=== PATIENT | male | born 1940 | race Caucasian/White ===

== ENCOUNTER 2021-08-13 10:36 | Inpatient (IN) | payer MEDICARE, SELFPAY ==
[2021-08-13] VITALS (7 sets, daily range): BP systolic 103–142; BP diastolic 64–82; PULSE 87–126; RESP 18–24; TEMP 36.6–37.7; O2SAT 93–100; BMI 28.5; BMI 28.0
--- NOTE | 2021-08-13 11:17 | EKG12_ITS ---
Test Reason : WEAKNESS Blood Pressure : / mmHG Vent. Rate : 102 BPM Atrial Rate : 104 BPM P-R Int : 000 ms QRS Dur : 152 ms QT Int : 412 ms P-R-T Axes : 000 -32 033 degrees QTc Int : 536 ms Atrial fibrillation Left axis deviation Right bundle branch block Abnormal ECG Confirmed by RHYS MAYES, SHARA ([id number]), research editor ALICE BRAVO ([id number]) on 08/16/2021 11:12:20 AM Referred By: BB Confirmed By:SHARA JOINER MD
--- NOTE | 2021-08-13 11:19 | EDS_ITS ---
HPI History of Present Illness Chief Complaint: Weakness Informant: patient and family Narrative Narrative: Patient presenting with weakness multiple falls without injury, the last of which was this morning. He states he lives alone, he was walking in his kitchen and his legs would suddenly give out on him and be extremely weak, and this is happened multiple times before. He was admitted to [facility] in [place] twice in the last month for this, and he spent 4 days or so in short-term rehab as well. He states his legs been swollen for a couple months, but that is relatively new for him. Denies any shortness of breath, cough, headache, chest discomfort, GI symptoms, or injury. He states he has not been experiencing back pain except for when I was laying on the floor for an hour today. Family member states that when she got to him, initially he was having trouble moving his legs but he was able, then he got better and she was able to help get him up with the help of another man they had to call over to the house. He and family are concerned about his safety at home especially because he is on Eliquis, he does not know why he is on that but it seems he has a history of atrial fibrillation. He does not have any records at this hospital, so we are submitting for records from the one in [place]. [facility] Medical History Anemia Atrial fibrillation Congestive heart failure (CHF) Memory deficit Weakness Home Medications amlodipine 10 mg PO DAILY 08/13/21 [History Last Taken Unknown] apixaban [Eliquis] 5 mg PO BID 08/13/21 [History Last Taken Unknown] aspirin [Baby Aspirin] 81 mg PO DAILY 08/13/21 [History Last Taken Unknown] atorvastatin 40 mg PO DAILY 08/13/21 [History Last Taken Unknown] furosemide 20 mg PO DAILY 08/13/21 [History Last Taken Unknown] lisinopril 20 mg PO BID 08/13/21 [History Last Taken Unknown] metoprolol succinate 50 mg PO DAILY 08/13/21 [History Last Taken Unknown] Allergy/AdvReac Type Severity Reaction Status Date / Time No Known Allergies Allergy Verified 08/13/21 10:39 Surgical History History of ankle surgery Social History Smoking Status: Current some day smoker tobacco type: cigarettes ROS ROS ED Constitutional Constitutional ED: Reports malaise; Denies chills or fever(s) Eyes Eyes: Denies change in vision or diplopia ENT ENT ED: Denies rhinorrhea or sore throat Cardiovascular Cardiovascular: Reports pedal edema; Denies chest pain or palpitations Respiratory/Chest Respiratory/Chest: Denies cough or dyspnea Gastrointestinal Gastrointestinal: Denies abdominal pain, diarrhea, nausea or vomiting Genitourinary Genitourinary ED: Denies dysuria or hematuria Musculoskeletal Musculoskeletal: Denies back pain or neck pain Integumentary Denies abscess or rash Neurologic Neurologic: Denies headache(s), paresthesias or weakness Psychiatric Psychiatric: Denies anxiety or suicidal thoughts EXAM Physical Exam Const Vital Signs: 08/13/21 10:36 08/13/21 11:06 Temperature 97.9 F Temperature Source Temporal Pulse Rate 126 H Respiratory Rate 18 Respiratory Effort Normal Non-Labored Blood Pressure 103/82 H Blood Pressure Mean 89 Pulse Ox 100 Oxygen Delivery Method Room Air Positive well nourished and well developed General Appearance ED: well developed and NAD HEENT Reports moist mucous membranes normocephalic and atraumatic Eyes PERRL and EOMs intact bilaterally Neck full ROM and supple Resp normal respiratory effort and clear to auscultation bilaterally Cardio regular rate and regular rhythm Cardio Narrative: 2/6 systolic murmur LLSB Rate: Negative for tachycardic GI non-tender and non-distended Auscultation: normoactive bowel sounds Palpation: soft Back/Spine no CVA tenderness General Back: other FROM Extremity normal to inspection General Extremety ED: Yes edema; Negative for pulses abnormal or tenderness General Extremity: edema bilateral lower extremity Details: severe (To just above the knees, symmetric bilaterally, no signs of infection.); Negative for pulses abnormal Neuro oriented x3, CN's II-XII intact bilaterally and no sensory deficits noted Sensorium / Orientation: awake and alert Motor Exam: strength 5/5 throughout Skin no rashes or lesions noted and no wounds MDM MDM MDM Narrative Medical decision making narrative: Lumbosacral x-ray series 3 views interpreted by myself and radiology negative for anything acute. Heavy aortic calcifications noted. Degenerative changes noted. Chest x-ray 2 views of my interpretation also interpreted by radiology negative for anything acute. Patient's work-up shows significant hypokalemia 2.9, likely related to his Lasix which he does need because of his significant edema. He clearly is not safe to be at home at this time, plan will be for admission further treatment evaluation and disposition. His BNP is elevated, he apparently has a history of CHF but we do not have an echocardiogram on record and have not received any records from [place] yet, however he does not appear to be clinically or radiographically in any type of decompensated left-sided congestive heart failure at this time. Lab Data Attestation: I reviewed the patient's lab results. Labs: Laboratory Results - last 24 hr 08/13/21 08/13/21 08/13/21 11:20 11:20 11:20 WBC 6.9 RBC 3.35 L Hgb 9.2 L Hct 28.3 L MCV 84.5 MCH 27.5 MCHC 32.5 RDW Std Deviation 52.8 H RDW Coeff of Kierra 17.3 H Plt Count 253 MPV 10.2 Immature Gran % (Auto) 1.200 H Neut % (Auto) 81.3 H Lymph % (Auto) 3.8 L Daniels % (Auto) 13.6 H Eos % (Auto) 0.0 Baso % (Auto) 0.1 Absolute Neuts (auto) 5.6 Absolute Lymphs (auto) 0.26 L Nucleated RBC % 0 Plt Morphology Comment CLUMPED Sodium 133 L Potassium 2.9 L Chloride 94 L Carbon Dioxide 34.0 H Anion Gap 5 BUN 12 Creatinine 0.90 Estim Creat Clear Calc 83.05 Est GFR (MDRD) Af Amer 105 Est GFR (MDRD) Non-Af 87 BUN/Creatinine Ratio 13.3 Glucose 103 Calcium 8.3 L Troponin I High Sens 30 B-Natriuretic Peptide 665.7 H Radiography Diagnostic Testing: Clinical Impression(s) from Imaging Studies Chest X-Ray 08/13/21 11:45 IMPRESSION: No acute abnormalities. Electronically Signed: Shade Jefferson MD at 12:08 EST , Lumbar Spine X-Ray 08/13/21 11:45 IMPRESSION: Degenerative changes of the spine, as detailed above. Electronically Signed: Shade Jefferson MD at 12:08 EST , EKG Initial EKG: Attestation: I personally reviewed and interpreted this EKG as follows: Interpretation: No Acute Injury Pattern, Atrial Fibrillation and LBBB Comments: Rate 102 Prior: No Prior Discharge Plan Triage Chief Complaint: Weakness ED Provider: Gus Ramsay Dx/Rx/DC Orders Clinical Impression: Hypokalemia due to excessive renal loss of potassium, Muscle weakness of lower extremity, Edema, peripheral, Recurrent falls Prescriptions: No Action atorvastatin 40 mg tablet 40 mg PO DAILY RF: 0 metoprolol succinate 50 mg tablet extended release 24 hr 50 mg PO DAILY RF: 0 lisinopril 20 mg tablet 20 mg PO BID RF: 0 amlodipine 10 mg tablet 10 mg PO DAILY RF: 0 aspirin [Baby Aspirin] 81 mg Tablet,Chewable 81 mg PO DAILY RF: 0 furosemide 20 mg tablet 20 mg PO DAILY RF: 0 Eliquis 5 mg tablet 5 mg PO BID RF: 0 Primary Care Provider: Care Physician,No Primary Referrals: Care Physician,No Primary [Primary Care Provider] - Disposition Disposition: Acute Care [facility]
[2021-08-13 11:36] LABS: Absolute Lymphocyte Count 0.26 X10^3/uL (0.83-4.51); Absolute Neutrophil Count 5.6 X10^3/uL (2.0-7.7); Basophil# 0.01 X10^3/uL; Basophil% 0.1 % (0-1); Hematocrit 28.3 % (40-54); Hemoglobin 9.2 g/dL (13.0-16.5); Lymphocyte # 0.26 X10^3/ul (0.83-4.51); Lymphocyte % 3.8 % (19-41); Mean Corp Hgb Conc 32.5 g/dL (32-36); Mean Corpuscular Hgb 27.5 pg (27.0-32.0); Mean Corpuscular Volume 84.5 fL (80-94); Mean Platelet Vol. 10.2 fl (6.2-12.0); Monocyte# 0.93 X10^3/uL; Monocyte% 13.6 % (0-10); NRBC Flagged by Analyzer 0 % (0-5); Neutrophil # 5.57 X10^3/uL (2.7-7.7); Neutrophil % 81.3 % (47-70); POSITIVE DIFFERENTIAL YES; Platelet Count 253 K/mm3 (150-450); RBC Distribution Width CV 17.3 % (11.6-14.6); RBC Distribution Width SD 52.8 fl (35.1-43.9); Red Blood Count 3.35 M/mm3 (4.6-6.2); White Blood Count 6.9 K/mm3 (4.4-11.0)
--- NOTE | 2021-08-13 11:45 | RAD_ITS ---
STUDY: X-RAY CHEST REASON FOR EXAM: Male, 80 years old. Weakness. TECHNIQUE: AP and lateral views of the chest. COMPARISON: None. FINDINGS: EKG electrodes are seen. The lungs are clear and expanded. There is no demonstrated pleural abnormality. Sternal cerclage wires and vascular clips are present from a prior sternotomy and coronary artery bypass graft procedure (CABG). Normal mediastinum and shankar. Normal visualized pulmonary arteries. There is atherosclerotic tortuosity of the aortic arch and descending thoracic aorta. There are diffuse degenerative changes of the visualized thoracic spine. Normal visualized ribs, clavicles, and shoulders. There is no demonstrated abnormality of the visualized soft tissue structures of the upper abdomen. RAD/Chest PA and Lateral IMPRESSION: No acute abnormalities. Electronically Signed: Shade Jefferson MD at 12:08 [facility] ,
--- NOTE | 2021-08-13 11:45 | RAD_ITS ---
STUDY: X-RAY - LUMBAR SPINE REASON FOR EXAM: Male, 80 years old. Pain, leg weakness TECHNIQUE: 3 view(s) of the lumbar spine were obtained. COMPARISON: None FINDINGS: Normal lumbar lordosis. There is no substantial scoliosis. There is a normal alignment of the vertebrae. There is multilevel endplate spondylosis of the lumbar vertebrae. There is multi-level degenerative disc disease with multi-level disc space narrowing. Facet joint osteoarthritis. There is atherosclerotic calcification of the abdominal aorta without a demonstrated aneurysm. RAD/Lumbar Spine 2 or 3 Views IMPRESSION: Degenerative changes of the spine, as detailed above. Electronically Signed: Shade Jefferson MD at 12:08 EST ,
[2021-08-13 11:46] LABS: Differential Indicated SCAN CRITERIA MET
[2021-08-13 11:54] LABS: BNP,B-Type NATRIURETIC PEPTIDE 665.7 pg/mL (0-100)
[2021-08-13 11:55] LABS: Anion Gap 5 (5-15); BUN 12 mg/dL (7-18); BUN/Creat Ratio 13.3 RATIO (10-20); Calcium,Total 8.3 mg/dL (8.5-10.1); Chloride 94 mmol/L (98-107); EST Glomerular Filtration Rate 87 mL/min (>60); Est Glom Filt Rate - Afr Amer 105 mL/min (>60); Estimated Creatinine Clearance 83.05 ml/min; Glucose 103 mg/dL (74-106); Potassium 2.9 mmol/L (3.5-5.1); Sodium Level 133 mmol/L (136-145); Troponin-I HS 30 pg/mL (3.0-78.0)
[2021-08-13 12:00] LABS: Platelet Morphology CLUMPED
[2021-08-13 12:28] LABS: Lactic Acid 1.4 mmol/L (0.4-1.9)
[2021-08-13] MEDS: Potassium Chloride 10mEq/100mL 10 MEQ/100 ML IV.SOLN. 100 MEQ IV BOLUS ×3 (12:46→22:58)
--- NOTE | 2021-08-13 12:46 | HP.PCM.HOS_ITS ---
HPI - General General Date of Admission: 08/13/21 Date of Service: 08/13/21 Chief Complaint: Frequent falls HPI Narrative PHOENIX CHAVEZ, is a 80 M with past medical history is again for paroxysmal A. fib on systemic anticoagulation with Eliquis, essential hypertension who presented with frequent falls. Patient has had 4 falls since the end of June. Patient had been seen at [facility] for similar complaints. Per patient he denies any lightheadedness prior to the fall however his legs just gave away. Was seen in the ED only got diagnostic finding was hypokalemia with potassium of 2.9. Of note patient had been recently initiated on furosemide. Admitted to monitored bed for subsequent al [facility] Medical History Anemia Atrial fibrillation Congestive heart failure (CHF) Memory deficit Weakness Home Medications amlodipine 10 mg PO DAILY 08/13/21 [History Last Taken Unknown] apixaban [Eliquis] 5 mg PO BID 08/13/21 [History Last Taken Unknown] aspirin [Baby Aspirin] 81 mg PO DAILY 08/13/21 [History Last Taken Unknown] atorvastatin 40 mg PO DAILY 08/13/21 [History Last Taken Unknown] furosemide 20 mg PO DAILY 08/13/21 [History Last Taken Unknown] lisinopril 20 mg PO BID 08/13/21 [History Last Taken Unknown] metoprolol succinate 50 mg PO DAILY 08/13/21 [History Last Taken Unknown] Allergy/AdvReac Type Severity Reaction Status Date / Time No Known Allergies Allergy Verified 08/13/21 10:39 Family History (Updated 08/13/21 @ 13:[address] Ld Husseni MD) Mother Head trauma Father Old age Surgical History History of ankle surgery Social History Smoking Status: Current some day smoker tobacco type: cigarettes ROS ROS Narrative GENERAL: denies fever, chills, night sweats, weight loss, anorexia HEENT: denies headache, sinus congestion, or drainage, dysphagia RESPIRATORY: denies cough, sputum production, shortness of breath, dyspnea on exertion CARDIAC: denies chest pain, palpitations, orthopnea, PND GASTROINTESTINAL: denies abdominal pain, nausea, vomiting, melena, GENITOURINARY: denies dysuria, urgency, frequency, heamaturia EXTREMITY: denies swelling MUSCULOSKELETAL: denies current joint pain or tenderness NEUROLOGIC: denies focal numbness, weakness, tingling HEMATOLOGIC: denies easy bruising and/or hemorrhage INTEGUMENT: denies rashes PSYCHIATRIC: denies suicidal or homicidal ideation Vital Signs Vital Signs Vital Signs: 08/13/21 10:36 08/13/21 11:06 Temperature 97.9 F Temperature Source Temporal Pulse Rate 126 H Respiratory Rate 18 Respiratory Effort Normal Non-Labored Blood Pressure 103/82 H Blood Pressure Mean 89 Pulse Ox 100 Oxygen Delivery Method Room Air Weight Weight: 106.594 kg Body Mass Index (BMI) 28.5 Physical Exam Narrative GENERAL: cooperative HEENT: Atraumatic; EYES; Anicteric, Normal Conjunctiva NECK; supple, normal thyroid, RESPIRATORY: Diminished to auscultation CARDIOVASCULAR: Regular S1 S2, GI: soft, normoactive bowel sounds, : No Renal angle tenderness; EXTREMITIES: Bipedal edema, no clubbing, MUSCULOSKELETAL: no muscle wasting NEURO: Awake; no lateralizing signs. SKIN: No Rash PSYCH; Flat affect Results Lab / Micro Data Result Diagrams: 08/13/21 11:20 08/13/21 11:20 Labs: Laboratory Results - last 24 hr 08/13/21 11:20: WBC 6.9, RBC 3.35 L, Hgb 9.2 L, Hct 28.3 L, MCV 84.5, MCH 27.5, MCHC 32.5, RDW Std Deviation 52.8 H, RDW Coeff of Kierra 17.3 H, Plt Count 253, MPV 10.2, Immature Gran % (Auto) 1.200 H, Neut % (Auto) 81.3 H, Lymph % (Auto) 3.8 L , [place] % (Auto) 13.6 H, Eos % (Auto) 0.0, Baso % (Auto) 0.1, Absolute Neuts (auto) 5.6, Absolute Lymphs (auto) 0.26 L, Nucleated RBC % 0, Plt Morphology Comment CLUMPED 08/13/21 11:20: Sodium 133 L, Potassium 2.9 L, Chloride 94 L, Carbon Dioxide 34.0 H, Anion Gap 5, BUN 12, Creatinine 0.90, Estim Creat Clear Calc 83.05, Est GFR (MDRD) Af Amer 105, Est GFR (MDRD) Non-Af 87, BUN/Creatinine Ratio 13.3, Glucose 103, Calcium 8.3 L, Troponin I High Sens 30 08/13/21 11:20: B-Natriuretic Peptide 665.7 H 08/13/21 11:40: Lactic Acid 1.4 Radiology Impression Chest X-Ray 08/13/21 11:45 IMPRESSION: No acute abnormalities. Electronically Signed: Shade Jefferson MD at 12:08 EST , Lumbar Spine X-Ray 08/13/21 11:45 IMPRESSION: Degenerative changes of the spine, as detailed above. Electronically Signed: Shade Jefferson MD at 12:08 EST , Assessment & Plan Assessment/Plan (1) Hypokalemia due to excessive renal loss of potassium: (2) Muscle weakness of lower extremity: (3) Recurrent falls: PLAN: Patient is a 80-year-old gentleman presented with frequent falls 1. Physical deconditioning - Requested for PT OT eval and sr. social media & mobile manager to assist with discharge planning 2. Hypokalemia ?Secondary to patient being on diuretics. Potassium repleted per protocol repeat potassium ordered in a.m. for monitoring 3. Mild hyponatremia ?Attributed to patient diuretics will continue with monitoring 4. Anemia - Secondary to chronic disorder monitoring H&H and transfuse if patient becomes symptomatic or hemoglobin falls below 7 5. Essential hypertension ?Did continue with home meds except for amlodipine in view of patient significant bilateral lower extremity edema 6. Paroxysmal A. fib ?Rate controlled, on systemic anticoagulation with Eliquis 7. Dyslipidemia ?Patient is on atorvastatin did continue 8. Bipedal edema I do suspect component of congestive heart failure possibly CHF with preserved ejection fraction Echo ordered for EF assessment discontinue with diuretics 9. DVT prophylaxis ?Patient is on Eliquis did continue Advance planning; did discuss with the patient and family regarding advanced directives as well as CODE STATUS. Did explain the various scenarios involved ( FULL CODE, DNR CCA, DNR CCA with no intubation, and DNR CC and what each meant) patient elected to remain full code with CPR and intubation if needed. Order was placed. Time spent on discussion 18 minutes. Charges/Coding Visit Charges OBSV E&M: 38176 Initial observation care L3 Procedures Hospitalists Procedures: 11467 Advncd Care Plan 30 Min
--- NOTE | 2021-08-13 13:08 | ED.RN ---
PT SON, VENU CHAVEZ [phone]
--- NOTE | 2021-08-13 13:15 | CASEMGMT ---
BEN JOHNSON Assessment: RN CM to room to meet with patient for initial transition planning/care coordination assessment. RN ALEX introduced self and role at [facility]. Patient voices understanding and consents to assessment at this time. Patient's friend Linda Segal present at bedside. Patient is alert and oriented and answers all questions appropriately. Care providers, pharmacy, and demographics verified/updated at this time. Admitting Dx: frequent falls, hypokalemia, weakness PCP: BLANCA Armijo Specialists: Denies Preferred Pharmacy: [facility] Insurance: [facility] Prescription Benefit: yes Living Will/HPOA: Patient denies having a living will or HPOA. LNOK: Friend Linda Lizamaum Living Arrangements: Patient lives alone in ground level, single story apartment with no steps to enter the home. Patient states independent with ADLs but recently weak and has had multiple falls. Patient typically ambulates independently without the use of an assistive device prior to current weakness. Smoking/ETOH: Former smoker (quit 2 years ago), admits to occasional ETOH use Transportation: Patient drives self and denies transportation concerns. DME/HHC/SNF: Patient has a cane, walker, raised toilet seat and grab bars in home. Patient takes Rx Eliquis. Denies previous HHC. Recent 4 day SNF stay at [facility]. Patient reports he has been staying with friend Linda since SNF discharge and denies current HHC. Patient's goal is to return home with HHC at time of hospital discharge but is agreeable to SNF for short term therapy if needed. CM to follow for any discharge planning/needs. Patient voices no concerns/needs at this time. Advised patient to ask for CM if any questions/concerns/needs arise. Voices understanding. Plan: home with HHC vs SNF, pending therapy evaluations and progress
[2021-08-13 13:45] LABS: Bacteria 0 SEEN /hpf (None Seen); Mucous, Urine 0 SEEN /hpf (<or=2+); Red Blood Cells-Urine 0 SEEN /hpf (0-5); White Blood Cells 0 SEEN /hpf (0-5)
[2021-08-13 13:59] LABS: Color, Urine Yellow (Yellow); Glucose, Dipstick Normal (Normal); Ketone-Dipstick Negative (Negative); Leukocyte Esterase-Dipstick Negative /ul (Negative); Nitrite-Dipstick Negative (Negative); Occult Blood-Urine Negative /ul (Negative); Protein-Dipstick 15 mg/dl (Negative); Urine Bilirubin Dipstick Negative (Negative); Urine Clarity Clear (Clear); Urine Urobilinogen Normal (Normal)
[2021-08-13 14:05] LABS: Squamous Epithelial Cells - UA 0-5 SEEN /hpf (0-5)
[2021-08-13] MEDS: 0.9% Saline Lock 10 ML Syringe IV (17:00)
[2021-08-13] MEDS: Furosemide 100 MG/10 ML Vial 60 MG IV (17:09)
[2021-08-13] MEDS: Potassium Chloride Oral Tablet 20 MEQ PO (17:11)
[2021-08-13] MEDS: Potassium Chloride 10mEq/100mL 10 MEQ/100 ML IV.SOLN. 50 MEQ IV BOLUS ×2 (18:54→21:12)
[2021-08-13] MEDS: Atorvastatin Calcium 40 MG Tablet PO (22:24)
[2021-08-13] MEDS: Lisinopril 20 MG Tablet PO (22:24)
[2021-08-13] MEDS: APIXABAN 5 MG TABLET PO (22:24)
[2021-08-13] MEDS: Nystatin Powder 15gm Bottle 1 APPLIC TOPICAL (22:39)
[2021-08-14] VITALS (12 sets, daily range): BP systolic 104–146; BP diastolic 63–75; PULSE 71–95; RESP 18; TEMP 36.6–37.2; O2SAT 92–95
[2021-08-14] MEDS: Nystatin Powder 15gm Bottle 1 APPLIC TOPICAL ×3 (04:54→21:35)
[2021-08-14 06:29] LABS: Absolute Lymphocyte Count 0.31 X10^3/uL (0.83-4.51); Absolute Neutrophil Count 4.5 X10^3/uL (2.0-7.7); Basophil# 0.01 X10^3/uL; Basophil% 0.2 % (0-1); Eosinophil# 0.01 X10^3/uL; Eosinophils% 0.2 % (0-5); Hematocrit 28.2 % (40-54); Hemoglobin 8.9 g/dL (13.0-16.5); Lymphocyte # 0.31 X10^3/ul (0.83-4.51); Lymphocyte % 5.4 % (19-41); Mean Corp Hgb Conc 31.6 g/dL (32-36); Mean Corpuscular Hgb 26.3 pg (27.0-32.0); Mean Corpuscular Volume 83.4 fL (80-94); Mean Platelet Vol. 10.1 fl (6.2-12.0); Monocyte# 0.93 X10^3/uL; Monocyte% 16.1 % (0-10); NRBC Flagged by Analyzer 0 % (0-5); Neutrophil # 4.47 X10^3/uL (2.7-7.7); Neutrophil % 77.1 % (47-70); POSITIVE DIFFERENTIAL YES; POSITIVE MORPHOLOGY YES; Platelet Count 217 K/mm3 (150-450); RBC Distribution Width CV 17.3 % (11.6-14.6); RBC Distribution Width SD 52.9 fl (35.1-43.9); Red Blood Count 3.38 M/mm3 (4.6-6.2); White Blood Count 5.8 K/mm3 (4.4-11.0)
[2021-08-14 07:05] LABS: Anion Gap 5 (5-15); BUN 13 mg/dL (7-18); BUN/Creat Ratio 18.7 RATIO (10-20); Calcium,Total 8.1 mg/dL (8.5-10.1); Chloride 96 mmol/L (98-107); Differential Indicated SCAN CRITERIA MET; EST Glomerular Filtration Rate 117 mL/min (>60); Est Glom Filt Rate - Afr Amer 141 mL/min (>60); Estimated Creatinine Clearance 74.74 ml/min; Glucose 96 mg/dL (74-106); Magnesium 1.7 mg/dL (1.6-2.6); Potassium 2.9 mmol/L (3.5-5.1); Sodium Level 134 mmol/L (136-145); Thyroid Stim Hormone (TSH) 1.31 uIU/mL (0.358-3.74)
[2021-08-14 07:09] LABS: Differential Comment SCANNED
--- NOTE | 2021-08-14 07:42 | PN.HOSP_ITS ---
Subjective Subjective Patient seen remains on continuous telemetry with frequent PVCs. Potassium still remains relatively low Objective Data Objective Data Vital Signs: Vital Signs Temp Pulse Resp BP Pulse Ox 99 F 95 18 146/73 H 92 08/14/21 04:52 08/14/21 07:02 08/14/21 04:52 08/14/21 04:52 08/14/21 04:52 Oxygen Delivery Method Room Air Weight: 103 kg Body Mass Index (BMI) 28.0 Intake & Output: Intake and Output for Last 24 Hours 08/12/21 08/13/21 08/14/21 23:59 23:59 23:59 Intake Total 615.51 / 615.51 200 / 200 Output Total 3525 / 3525 700 / 700 Balance -2909.49 / -2909.49 -500 / -500 Lab / Micro Data Result Diagrams: 08/14/21 06:08 08/14/21 06:08 Labs: Laboratory Results - last 24 hr 08/13/21 11:20: WBC 6.9, RBC 3.35 L, Hgb 9.2 L, Hct 28.3 L, MCV 84.5, MCH 27.5, MCHC 32.5, RDW Std Deviation 52.8 H, RDW Coeff of Kierra 17.3 H, Plt Count 253, MPV 10.2, Immature Gran % (Auto) 1.200 H, Neut % (Auto) 81.3 H, Lymph % (Auto) 3.8 L , Lewis % (Auto) 13.6 H, Eos % (Auto) 0.0, Baso % (Auto) 0.1, Absolute Neuts (auto) 5.6, Absolute Lymphs (auto) 0.26 L, Nucleated RBC % 0, Plt Morphology Comment CLUMPED 08/13/21 11:20: Sodium 133 L, Potassium 2.9 L, Chloride 94 L, Carbon Dioxide 34.0 H, Anion Gap 5, BUN 12, Creatinine 0.90, Estim Creat Clear Calc 83.05, Est GFR (MDRD) Af Amer 105, Est GFR (MDRD) Non-Af 87, BUN/Creatinine Ratio 13.3, Glucose 103, Calcium 8.3 L, Troponin I High Sens 30 08/13/21 11:20: B-Natriuretic Peptide 665.7 H 08/13/21 11:40: Lactic Acid 1.4 08/13/21 13:29: Urine Color Yellow, Urine Clarity Clear, Urine pH 6.0, Ur Specific [place] 1.020, Urine Protein 15 H, Urine Glucose (UA) Normal, Urine Ketones Negative, Urine Occult Blood Negative, Urine Nitrite Negative, Urine Bilirubin Negative, Urine Urobilinogen Normal, Ur Leukocyte Esterase Negative, Urine RBC 0 SEEN, Urine WBC 0 SEEN, Ur Squamous Epith Cells 0-5 SEEN, Urine Bacteria 0 SEEN, Urine Mucus 0 SEEN 08/14/21 06:08: WBC 5.8, RBC 3.38 L, Hgb 8.9 L, Hct 28.2 L, MCV 83.4, MCH 26.3 L , MCHC 31.6 L, RDW Std Deviation 52.9 H, RDW Coeff of Kierra 17.3 H, Plt Count 217, MPV 10.1, Immature Gran % (Auto) 1.000 H, Neut % (Auto) 77.1 H, Lymph % (Auto) 5.4 L, Lewis % (Auto) 16.1 H, Eos % (Auto) 0.2, Baso % (Auto) 0.2, Absolute Neuts (auto) 4.5, Absolute Lymphs (auto) 0.31 L, Nucleated RBC % 0, Differential Comment SCANNED 08/14/21 06:08: Sodium 134 L, Potassium 2.9 L, Chloride 96 L, Carbon Dioxide 33.0 H, Anion Gap 5, BUN 13, Creatinine 0.70, Estim Creat Clear Calc 74.74, Est GFR (MDRD) Af Amer 141, Est GFR (MDRD) Non-Af 117, BUN/Creatinine Ratio 18.7, Gl ucose 96, Calcium 8.1 L, Magnesium 1.7, TSH 1.31 Radiography Diagnostic Testing: Radiology Impression Chest X-Ray 08/13/21 11:45 IMPRESSION: No acute abnormalities. Electronically Signed: Shade Jefferson MD at 12:08 EST , Lumbar Spine X-Ray 08/13/21 11:45 IMPRESSION: Degenerative changes of the spine, as detailed above. Electronically Signed: Shade Jefferson MD at 12:08 EST , Physical Exam Narrative GENERAL: cooperative HEENT: Atraumatic; EYES; Anicteric, Normal Conjunctiva NECK; supple, normal thyroid, RESPIRATORY: Diminished to auscultation CARDIOVASCULAR: Regular S1 S2, GI: soft, normoactive bowel sounds, : No Renal angle tenderness; EXTREMITIES: Bipedal edema, no clubbing, MUSCULOSKELETAL: no muscle wasting NEURO: Awake; no lateralizing signs. SKIN: No Rash PSYCH; Flat affect Assessment & Plan Assessment/Plan (1) Hypokalemia due to excessive renal loss of potassium: (2) Muscle weakness of lower extremity: (3) Recurrent falls: PLAN: Patient is a 80-year-old gentleman presented with frequent falls 1. Physical deconditioning - Requested for PT OT eval and health and social care teacher to assist with discharge planning 2. Hypokalemia ?Secondary to patient being on diuretics. Potassium repleted per protocol repeat potassium ordered in a.m. for monitoring -08/14/2021; patient potassium still remains low despite aggressive replacement. Additional potassium given, repeat K level ordered for 2 PM. Also requested for magnesium level 3. Runs of nonsustained VT ?This may be related to patient underlying electrolyte imbalance i.e. hypokalemia which is currently being corrected and echo has been ordered for subsequent evaluation 4. Suspected congestive heart failure ?Patient has significant edema. His Lasix dose adjusted up. Echo ordered for subsequent evaluation 5. Mild hyponatremia ?Attributed to patient diuretics will continue with monitoring 6. Anemia - Secondary to chronic disorder monitoring H&H and transfuse if patient becomes symptomatic or hemoglobin falls below 7 7. Essential hypertension ?Did continue with home meds except for amlodipine in view of patient significant bilateral lower extremity edema 8. Paroxysmal A. fib ?Rate controlled, on systemic anticoagulation with Eliquis 9. Dyslipidemia ?Patient is on atorvastatin did continue 10. DVT prophylaxis ?Patient is on Eliquis did continue Charges/Coding Visit Charges OBSV E&M: 83332 Subsequent observation care L3
[2021-08-14] MEDS: Potassium Chloride Oral Tablet 20 MEQ PO ×2 (07:59→16:52)
[2021-08-14] MEDS: Metoprolol(XL)Succ 50 MG Tablet PO (07:59)
[2021-08-14] MEDS: Aspirin 81 MG TAB.CHEW PO (07:59)
[2021-08-14] MEDS: APIXABAN 5 MG TABLET PO ×2 (08:00→21:34)
[2021-08-14] MEDS: Lisinopril 20 MG Tablet PO ×2 (08:00→21:34)
[2021-08-14] MEDS: Furosemide 20 MG Tablet PO ×2 (08:00→10:49)
[2021-08-14] MEDS: Potassium Chloride Oral Tablet 20 MEQ 40 MEQ PO (08:17)
[2021-08-14] MEDS: Potassium Chloride 10mEq/100mL 10 MEQ/100 ML IV.SOLN. 100 MEQ IV BOLUS ×4 (09:19→12:52)
--- NOTE | 2021-08-14 09:20 | EKG12_ITS ---
Test Reason : PVC'S Blood Pressure : / mmHG Vent. Rate : 110 BPM Atrial Rate : 117 BPM P-R Int : 000 ms QRS Dur : 142 ms QT Int : 372 ms P-R-T Axes : 000 -40 047 degrees QTc Int : 503 ms Atrial fibrillation with premature ventricular or aberrantly conducted complexes Left axis deviation Right bundle branch block Abnormal ECG When compared with ECG of 13-AUG-2021 11:27, MANUAL COMPARISON REQUIRED, DATA IS UNCONFIRMED Confirmed by RHYS MAYES, SHARA ([id number]), editor news ALICE BRAVO ([id number]) on 08/16/2021 11:21:14 AM Referred By: TIFFANY Confirmed By:SHARA JOINER MD
--- NOTE | 2021-08-14 09:53 | ECHOD_ITS ---
Reason For Study: Arrhythmia Procedure This was a 2D Doppler, Color Flow transthoracic echocardiogram. Exam performed portable in patient room. Left Ventricle Mildly dilated left ventricle. The estimated ejection fraction is 40-45 %. Right Ventricle Normal right ventricle. Normal systolic function. Atria The left atrium is moderately enlarged. Normal right atrium. Mitral Valve The mitral valve is structurally normal. No prolapse or stenosis seen. Mild-Moderate (1-2+) mitral valve insufficiency. Tricuspid Valve Normal tricuspid valve. No tricuspid valve insufficiency. Aortic Valve Mild diffuse aortic valve thickening. Mild (1+) aortic valve insufficiency. Pulmonic Valve The pulmonic valve is not well visualized. Great Vessels Normal aortic root. Pericardium/Pleural No pericardial effusion. MMode/2D Measurements & Calculations LVIDd: 4.9 cm IVSd: 1.5 cm Ao root diam: 3.2 cm LVIDs: 3.8 cm LVPWd: 1.0 cm RVDd: 3.0 cm FS: 22.5 % LAV(MOD-bp): 69.6 ml LVAd ap4: 31.9 cm2 LVAd ap2: 33.2 cm2 LAV(MOD-bp) Indexed: 29.8 ml/m2 LVLd ap4: 7.9 cm LVLd ap2: 8.6 cm LAV(MOD-sp2): 59.9 ml EDV(MOD-sp4): 106.3 ml EDV(MOD-sp2): 109.2 ml LAV(MOD-sp4): 70.4 ml EDV(sp4-el): 108.9 ml EDV(sp2-el): 108.5 ml LVAs ap4: 22.2 cm2 LVAs ap2: 23.4 cm2 LVLs ap4: 7.2 cm LVLs ap2: 7.9 cm ESV(MOD-sp4): 56.8 ml ESV(MOD-sp2): 63.1 ml ESV(sp4-el): 57.9 ml ESV(sp2-el): 58.7 ml EF(MOD-sp4): 46.6 % EF(MOD-sp2): 42.2 % EF(sp4-el): 46.8 % SV(MOD-sp4): 49.5 ml SV(MOD-sp2): 46.1 ml SV(sp4-el): 51.0 ml LA dimension(2D): 5.3 cm LA A4 area: 22.8 cm2 RA A4 area: 15.9 cm2 Doppler Measurements & Calculations MV E max dipesh: 98.2 cm/sec Ao V2 max: 141.0 cm/sec LV V1 max: 118.8 cm/sec Ao max P.0 mmHg LV V1 max P.7 mmHg PA V2 max: 87.0 cm/sec TR max dipesh: 253.6 cm/sec TR max P.8 mmHg ECHO/Echo Complete Interpretation Summary The estimated ejection fraction is 40-45 %. Moderate LAE/Left Atrial enlargment Mild-moderate MR{central and Eccentric Jet) No prior echo to compare Ordering Physician: Ld Hussein Performed By: Kelle Walters RDCS
[2021-08-14] MEDS: 0.9% Saline Lock 10 ML Syringe IV ×3 (10:50→21:33)
[2021-08-14] MEDS: Furosemide 100 MG/10 ML Vial 60 MG IV ×2 (10:50→17:47)
[2021-08-14 11:04] LABS: Magnesium 1.5 mg/dL (1.6-2.6)
[2021-08-14] MEDS: Magnesium Sulfate 4gm/100mL 4 GM/100 ML IV.SOLN. IV (15:19)
[2021-08-14 15:22] LABS: Potassium 3.6 mmol/L (3.5-5.1)
[2021-08-14] MEDS: Atorvastatin Calcium 40 MG Tablet PO (21:34)
[2021-08-15] VITALS (7 sets, daily range): BP systolic 114–121; BP diastolic 64–68; PULSE 73–91; RESP 18; TEMP 36.6–36.9; O2SAT 92–93
[2021-08-15] MEDS: Nystatin Powder 15gm Bottle 1 APPLIC TOPICAL (04:39)
--- NOTE | 2021-08-15 07:25 | PCM.PN.HOSP ---
Subjective Subjective Patient seen breathing and bilateral lower extremity swelling significantly improved. Echo obtained did demonstrate mildly dilated left ventricle with estimated EF of 40 to 45% Objective Data Objective Data Vital Signs: Vital Signs Temp Pulse Resp BP Pulse Ox 97.9 F 91 18 121/64 H 92 08/15/21 04:39 08/15/21 04:39 08/15/21 04:39 08/15/21 04:39 08/15/21 04:39 Oxygen Delivery Method Room Air Weight: 102.7 kg Body Mass Index (BMI) 28.0 Intake & Output: Intake and Output for Last 24 Hours 08/13/21 08/14/21 08/16/21 23:59 23:59 00:59 Intake Total 615.51 / 615.51 1120 / 1120 200 / 200 Output Total 3525 / 3525 2800 / 2800 500 / 500 Balance -2909.49 / -2909.49 -1680 / -1680 -300 / -300 Lab / Micro Data Result Diagrams: 08/15/21 07:57 08/15/21 07:57 Labs: Laboratory Results - last 24 hr 08/14/21 06:08: WBC 5.8, RBC 3.38 L, Hgb 8.9 L, Hct 28.2 L, MCV 83.4, MCH 26.3 L, MCHC 31.6 L, RDW Std Deviation 52.9 H, RDW Coeff of Kierra 17.3 H, Plt Count 217, MPV 10.1, Immature Gran % (Auto) 1.000 H, Neut % (Auto) 77.1 H, Lymph % (Auto) 5.4 L, [place] % (Auto) 16.1 H, Eos % (Auto) 0.2, Baso % (Auto) 0.2, Absolute Neuts (auto) 4.5, Absolute Lymphs (auto) 0.31 L, Nucleated RBC % 0, Differential Comment SCANNED 08/14/21 06:08: Sodium 134 L, Potassium 2.9 L, Chloride 96 L, Carbon Dioxide 33.0 H, Anion Gap 5, BUN 13, Creatinine 0.70, Estim Creat Clear Calc 74.74, Est GFR (MDRD) Af Amer 141, Est GFR (MDRD) Non-Af 117, BUN/Creatinine Ratio 18.7, Glucose 96, Calcium 8.1 L, Magnesium 1.7, TSH 1.31 03/12/22 06:08: Magnesium 1.5 L 08/14/21 14:54: Potassium 3.6 Radiography Diagnostic Testing: Radiology Impression Echocardiogram 08/14/21 09:53 Interpretation Summary The estimated ejection fraction is 40-45 %. Moderate LAE/Left Atrial enlargment Mild-moderate MR{central and Eccentric Jet) No prior echo to compare Ordering Physician: Ld Hussein Performed By: Kelle Walters RDCS Physical Exam Narrative GENERAL: cooperative HEENT: Atraumatic; EYES; Anicteric, Normal Conjunctiva NECK; supple, normal thyroid, RESPIRATORY: Diminished to auscultation CARDIOVASCULAR: Regular S1 S2, GI: soft, normoactive bowel sounds, : No Renal angle tenderness; EXTREMITIES: Bipedal edema, no clubbing, MUSCULOSKELETAL: no muscle wasting NEURO: Awake; no lateralizing signs. SKIN: No Rash PSYCH; Flat affect Assessment & Plan Assessment/Plan (1) Hypokalemia due to excessive renal loss of potassium: (2) Muscle weakness of lower extremity: (3) Recurrent falls: PLAN: Patient is a 80-year-old gentleman presented with frequent falls 1. Physical deconditioning - Requested for PT OT eval and forensic social worker to assist with discharge planning 2. Hypokalemia ?Secondary to patient being on diuretics. Potassium repleted per protocol repeat potassium ordered in a.m. for monitoring -08/14/2021; patient potassium still remains low despite aggressive replacement. Additional potassium given, repeat K level ordered for 2 PM. Also requested for magnesium level 3. Runs of nonsustained VT ?This may be related to patient underlying electrolyte imbalance i.e. hypokalemia which is currently being corrected and echo has been ordered for subsequent evaluation 4. Suspected congestive heart failure ?Patient has significant edema. His Lasix dose adjusted up. Echo ordered for subsequent evaluation The estimated ejection fraction is 40-45 %. Moderate LAE/Left Atrial enlargment Mild-moderate MR{central and Eccentric Jet) No prior echo to compare 08/15/2021atient seen breathing and bilateral lower extremity swelling significantly improved. 5. Mild hyponatremia ?Attributed to patient diuretics will continue with monitoring 6. Anemia - Secondary to chronic disorder monitoring H&H and transfuse if patient becomes symptomatic or hemoglobin falls below 7 7. Essential hypertension ?Did continue with home meds except for amlodipine in view of patient significant bilateral lower extremity edema 8. Paroxysmal A. fib ?Rate controlled, on systemic anticoagulation with Eliquis 9. Dyslipidemia ?Patient is on atorvastatin did continue 10. DVT prophylaxis ?Patient is on Eliquis did continue Charges/Coding Visit Charges Inpatient E&M: 82443 Subs Hosp L2
[2021-08-15 08:35] LABS: Absolute Lymphocyte Count 0.48 X10^3/uL (0.83-4.51); Absolute Neutrophil Count 4.4 X10^3/uL (2.0-7.7); Basophil# 0.02 X10^3/uL; Basophil% 0.3 % (0-1); Eosinophil# 0.05 X10^3/uL; Eosinophils% 0.8 % (0-5); Hematocrit 30.4 % (40-54); Hemoglobin 9.7 g/dL (13.0-16.5); Lymphocyte # 0.48 X10^3/ul (0.83-4.51); Lymphocyte % 8.1 % (19-41); Mean Corp Hgb Conc 31.9 g/dL (32-36); Mean Corpuscular Hgb 26.8 pg (27.0-32.0); Mean Platelet Vol. 10.4 fl (6.2-12.0); Monocyte# 0.96 X10^3/uL; Monocyte% 16.2 % (0-10); NRBC Flagged by Analyzer 0 % (0-5); Neutrophil # 4.35 X10^3/uL (2.7-7.7); Neutrophil % 73.4 % (47-70); POSITIVE DIFFERENTIAL YES; POSITIVE MORPHOLOGY YES; Platelet Count 244 K/mm3 (150-450); RBC Distribution Width CV 17.2 % (11.6-14.6); RBC Distribution Width SD 52.9 fl (35.1-43.9); Red Blood Count 3.62 M/mm3 (4.6-6.2); White Blood Count 5.9 K/mm3 (4.4-11.0)
[2021-08-15 08:40] LABS: Differential Indicated SCAN CRITERIA MET
[2021-08-15 08:56] LABS: Anion Gap 5 (5-15); BUN 15 mg/dL (7-18); BUN/Creat Ratio 16.8 RATIO (10-20); Calcium,Total 8.9 mg/dL (8.5-10.1); Chloride 96 mmol/L (98-107); EST Glomerular Filtration Rate 87 mL/min (>60); Est Glom Filt Rate - Afr Amer 105 mL/min (>60); Estimated Creatinine Clearance 83.05 ml/min; Glucose 102 mg/dL (74-106); Magnesium 2.2 mg/dL (1.6-2.6); Potassium 3.9 mmol/L (3.5-5.1); Sodium Level 134 mmol/L (136-145)
[2021-08-15 09:12] LABS: Atypical Lymphocyte 1+ %
[2021-08-15] MEDS: 0.9% Saline Lock 10 ML Syringe IV (09:13)
[2021-08-15] MEDS: Potassium Chloride Oral Tablet 20 MEQ PO (09:14)
[2021-08-15] MEDS: Metoprolol(XL)Succ 50 MG Tablet PO (09:14)
[2021-08-15] MEDS: Aspirin 81 MG TAB.CHEW PO (09:14)
[2021-08-15] MEDS: APIXABAN 5 MG TABLET PO (09:14)
[2021-08-15] MEDS: Lisinopril 20 MG Tablet PO (09:14)
--- NOTE | 2021-08-15 09:24 | DS.PCM_ITS ---
Providers Date of Admission: 08/13/21 Primary Care Physician: No Primary Care Phys Reason For Visit: FREQUENT FALLS, HYPOKALEMIA Diagnosis Discharge Diagnosis (1) Hypokalemia due to excessive renal loss of potassium: Status: Acute Code(s): E87.6 - Hypokalemia (2) Muscle weakness of lower extremity: Status: Acute Code(s): M62.81 - Muscle weakness (generalized) (3) Recurrent falls: Status: Acute Code(s): R29.6 - Repeated falls Medications at Discharge Home Medications Eliquis 5 mg PO BID 08/13/21 aspirin 81 mg PO DAILY 08/13/21 atorvastatin 40 mg PO DAILY 08/13/21 lisinopril 20 mg PO BID 08/13/21 metoprolol succinate 50 mg PO DAILY 08/13/21 furosemide 40 mg PO DAILY #0 tab 08/15/21 potassium chloride [Klor-Con M20] 20 meq PO BIDCM #60 tab 08/15/21 Hospital Course Summary of Care Provided Minutes Spent on Discharge: 35 Hospital Course: Patient is a 80-year-old gentleman presented with frequent falls 1. Physical deconditioning - Requested for PT OT eval and case management social worker to assist with discharge planning ?08/15/2021. Patient was seen and assessed by PT no further skilled therapy recommended 2. Hypokalemia ?Secondary to patient being on diuretics. Potassium repleted per protocol repeat potassium ordered in a.m. for monitoring -08/14/2021; patient potassium still remains low despite aggressive replacement. Additional potassium given, repeat K level ordered for 2 PM. Also requested for magnesium level ?08/15/2021 prescription written for potassium supplementation on discharge 3. Runs of nonsustained VT ?This may be related to patient underlying electrolyte imbalance i.e. hypokalemia which is currently being corrected and echo has been ordered for subsequent evaluation 4. Acute congestive heart failure with reduced ejection fraction ?Patient has significant edema. His Lasix dose adjusted up. Echo ordered for subsequent evaluation The estimated ejection fraction is 40-45 %. Moderate LAE/Left Atrial enlargment Mild-moderate MR{central and Eccentric Jet) No prior echo to compare 08/15/2021atient seen breathing and bilateral lower extremity swelling significantly improved. 5. Mild hyponatremia ?Attributed to patient diuretics will continue with monitoring 6. Anemia - Secondary to chronic disorder monitoring H&H and transfuse if patient becomes symptomatic or hemoglobin falls below 7 7. Essential hypertension ?Did continue with home meds except for amlodipine in view of patient significant bilateral lower extremity edema 8. Paroxysmal A. fib ?Rate controlled, on systemic anticoagulation with Eliquis 9. Dyslipidemia ?Patient is on atorvastatin did continue 10. DVT prophylaxis ?Patient is on Eliquis did continue Physical Exam Narrative GENERAL: cooperative HEENT: Atraumatic; EYES; Anicteric, Normal Conjunctiva NECK; supple, normal thyroid, RESPIRATORY: Diminished to auscultation CARDIOVASCULAR: Regular S1 S2, GI: soft, normoactive bowel sounds, : No Renal angle tenderness; EXTREMITIES:trace Bipedal edema, no clubbing, MUSCULOSKELETAL: no muscle wasting NEURO: Awake; no lateralizing signs. SKIN: No Rash PSYCH; Flat affect Weight / BMI Weight Weight: 102.7 kg Body Mass Index (BMI) 28.0 ABG / Lab / Microbiology Data Result Diagrams: 08/15/21 07:57 08/15/21 07:57 Laboratory: Laboratory Results - last 24 hr 08/14/21 06:08: Magnesium 1.5 L 08/14/21 14:54: Potassium 3.6 08/15/21 07:57: Sodium 134 L, Potassium 3.9, Chloride 96 L, Carbon Dioxide 33.0 H, Anion Gap 5, BUN 15, Creatinine 0.90, Estim Creat Clear Calc 83.05, Est GFR (MDRD) Af Amer 105, Est GFR (MDRD) Non-Af 87, BUN/Creatinine Ratio 16.8, Glucose 102, Calcium 8.9, Magnesium 2.2 08/15/21 07:57: WBC 5.9, RBC 3.62 L, Hgb 9.7 L, Hct 30.4 L, MCV 84.0, MCH 26.8 L , MCHC 31.9 L, RDW Std Deviation 52.9 H, RDW Coeff of Kierra 17.2 H, Plt Count 244, MPV 10.4, Immature Gran % (Auto) 1.200 H, Neut % (Auto) 73.4 H, Lymph % (Auto) 8.1 L, [place] % (Auto) 16.2 H, Eos % (Auto) 0.8, Baso % (Auto) 0.3, Absolute Neuts (auto) 4.4, Absolute Lymphs (auto) 0.48 L, Nucleated RBC % 0, Atypical Lymphocytes 1+ Radiography Diagnostic Testing: Radiology Impression Echocardiogram 08/14/21 09:53 Interpretation Summary The estimated ejection fraction is 40-45 %. Moderate LAE/Left Atrial enlargment Mild-moderate MR{central and Eccentric Jet) No prior echo to compare Ordering Physician: Ld Hussein Performed By: Kelle Walters RDCS D/C Instructions Discharge Diet: 8 Cup Fluid Restriction and 2000 mg Sodium Diet Discharge Activity: Return to Normal Activity Call your doctor if you observe: Fever of 101 or Higher, Shortness of breath, F ainting spells and Chest pain Meaningful Use Info Meaningful Use Diagnoses (Choose all that apply): CHF CHF BARBIE/ARB ordered at discharge?: Yes Documented LVEF (%): 40 Discharge Plan Admission Admit Date/Time: 08/13/21 12:47 Attending Provider: Ld Hussein Primary Care Provider: Care Physician,No Primary Discharge Orders/Prescriptions Prescriptions: New potassium chloride [Klor-Con M20] 20 mEq Tablet,Er Particles/Crystals 20 meq PO BIDCM Qty: 60 RF: 0 Continued atorvastatin 40 mg tablet 40 mg PO DAILY RF: 0 metoprolol succinate 50 mg tablet extended release 24 hr 50 mg PO DAILY RF: 0 lisinopril 20 mg tablet 20 mg PO BID RF: 0 aspirin 81 mg Tablet,Chewable 81 mg PO DAILY RF: 0 Eliquis 5 mg tablet 5 mg PO BID RF: 0 Changed furosemide 20 mg tablet 40 mg PO DAILY Qty: 0 RF: 0 Discontinued amlodipine 10 mg tablet 10 mg PO DAILY RF: 0 Referrals / Follow Up: Care Physician,No Primary [Primary Care Provider] - Within 1 Week Disposition Disposition (needs filled in before D/C Order can be placed): Home, Self Care Charges/Coding Visit Charges Inpatient E&M: 72139 Disch Hosp
[2021-08-15] MEDS: Furosemide 20 MG Tablet 60 MG PO (10:56)
== END 2021-08-15 13:42 | disposition home or self-care (01) | DRG 291 ==
LOC: ED 12:51 → MS3 13:04
PROVIDERS: Admitting Provider Internal Medicine; Emergency Provider Emergency Medicine; Visit Provider Internal Medicine
DX: I11.0 Hypertensive heart disease with heart failure (principal); I50.21 Acute systolic (congestive) heart failure; I47.2 Ventricular tachycardia; E87.1 Hypo-osmolality and hyponatremia; D63.8 Anemia in other chronic diseases classified elsewhere; I70.0 Atherosclerosis of aorta; I48.0 Paroxysmal atrial fibrillation; E87.6 Hypokalemia; I34.0 Nonrheumatic mitral (valve) insufficiency; E78.5 Hyperlipidemia, unspecified; F17.210 Nicotine dependence, cigarettes, uncomplicated; Z79.01 Long term (current) use of anticoagulants; M62.81 Muscle weakness (generalized); Z66 Do not resuscitate; R29.6 Repeated falls
CPT/HCPCS: 36415; 71046; 72100; 80048; 81001; 83605; 83735; 83880; 84132; 84443; 84484; 85025; 87040; 93005; 93306; 97161; 97165; 99251; 99285; 99406; J7040; A4216; G0463; J1940